=== PATIENT | male | born 1930 | race Caucasian/White ===

== ENCOUNTER → 2016-11-22 13:07 | Outpatient (CLI) | payer MEDICARE, BC ==
[2014-09-18 13:35] VITALS: BMI 24.2
[~2016-11-22 13:07] MED LIST: ABILIFY2 MG PO; ALEVE220 MG PO; BAYER CHEWABLE81 MG PO; BENADRYL50 MG PO; BETAPACE 80 MG80 MG PO; BUMEX 1 MG TAB1 MG PO; CALAMINE LOTIO177 ML TOPICAL; CELEXA20 MG PO; COLACE100 MG PO; DULCOLAX10 MG/SUPP RC; FISH OIL 1,0001 CA1 PO; FLORINEF 0.1 M0.1 MG PO; GEMFIBROZIL600 MG PO; HEMOCYTE PLUS C1 CAP PO; IBUPROFEN200 MG PO; K-DUR20 MEQ PO; LASIX40 MG PO; LOVASTATIN10 MG PO; MELATONIN 10 M1 EACH PO; MELATONIN10 M1 PO; METAMUCIL1042 GM PO; MEVACOR20 MG PO; MIRALAX17 GM PO; OCUVITE TABLET1 TA1 PO; SENOKOT-S TABLE1 TAB PO; ULTRAM50 MG PO; VITAMIN B-121000 MCG PO; XARELTO20 MG PO; ZOFRAN ODT4 MG/UDTAB PO; ZOFRAN4 MG PO
== END | disposition home or self-care (01) ==
LOC: D.LABREF 13:07
DX: N02.9 Recurrent and persistent hematuria with unspecified morphologic changes (principal)

== ENCOUNTER 2016-11-23 06:53 | Day surgery (SDC) | payer MEDICARE, BC ==
[~2016-11-23] VITALS: Ht 182.9 cm; Wt 83.9 kg
[~2016-11-23 06:53] MED LIST changes: -IBUPROFEN200 MG PO; -MELATONIN10 M1 PO
[2016-11-23 07:11] LABS: BASOPHILS 0.7 % (0.0-2.0); EOSINOPHILS 3.3 % (0-7); HEMATOCRIT 40.2 % (42.0-54.0); HEMOGLOBIN 12.8 g/dL (13.5-17.5); IMMATURE GRANULOCYTES 0.2 % (0-5); LYMPHOCYTES 36.8 % (15-50); MCH 30.7 pg (26.0-34.0); MCHC 31.8 g/dL (31.0-37.0); MCV 96.4 fL (80.0-100.0); MEAN PLATELET VOLUME 11.4 fL (7.4-10.4); MONOCYTES 13.9 % (2-11); NEUTROPHILS 45.1 % (40-80); PLATELET COUNT 119 10x3/uL (130-400); RBC 4.17 10x6/uL (4.20-6.10); RDW 14.1 % (11.5-14.5); WBC 4.5 10x3/uL (4.8-10.8)
[2016-11-23 07:20] LABS: CARBON DIOXIDE 29.5 mmol/L (21.0-32.0); CREATININE - SERUM 1.2 mg/dL (0.6-1.3); POTASSIUM - SERUM 4.5 mmol/L (3.5-5.1)
[2016-11-23] MEDS ORDERED: IBUPROFEN200 MG PO (08:18)
[2016-11-23] MEDS ORDERED: MELATONIN10 M1 PO (08:20)
[2016-11-23 08:28] VITALS: BP 145/74; Ht 182.9 cm; Wt 83.9 kg
--- NOTE | 2016-11-23 11:04 | NUR ---
1015 SPOKE WITH PATIENT'S DAUGHTER, JEFF BUTLER SURGICAL DELAY. EXPLAINED DR CAMARENA WAS STILL PERFORMING HIS FIRST PROCEDURE. INFORMED DAUGHTER WE WOULD KEEP THEM UPDATED HOURLY.
--- NOTE | 2016-11-23 12:23 | NUR ---
1220 SPOKE WITH SON TEZ JEFF CONTINUING DELAY DUE TO LENGTH OF PREVIOUS PATIENTS PROCEDURES.
--- NOTE | 2016-11-23 13:14 | NUR ---
1310 NOTIFIED PATIENT (SON - TEZ) THAT TRANSPORTER WOULD BE COMING TO BRING PATIENT TO SURGERY.
--- NOTE | 2016-11-23 18:06 | NUR ---
1545 IV DC WITH CATHER TIP INTACT
--- NOTE | 2016-11-25 13:30 | OP ---
PATIENT NAME: LAKSHMI WILLIAMSON MEDICAL RECORD: [id number] :30 LOCATION:[facility] ADMISSION DATE: SURGEON: MATA CAMARENA MD DATE OF OPERATION: 11/23/2016 SURGEON: Mata Camarena M.D. ANESTHESIA: MAC by Dr. Billy. PREOPERATIVE DIAGNOSIS: Gross hematuria. FINDINGS: Prior radical prostatectomy. Single ureteral orifices. No bladder tumors, but inflamed bladder surface on the trigone and posterior wall. PROCEDURES: Cystoscopy, bladder biopsy. SPECIMENS: Bladder biopsy. COMPLICATIONS: None. ESTIMATED BLOOD LOSS: None. CLINICAL HISTORY: This is an 86-year-old male, who was formerly on Xarelto when he had a pulmonary embolism. He has since stopped being on Xarelto. He has also had a radical prostatectomy several years ago for prostate cancer. He developed episodes of painless gross hematuria. He comes to have this investigated. Earlier today, he had a CT scan of his abdomen and pelvis, which showed a 6-mm gallstone. His kidneys are normal. He has some signs of sigmoid diverticulosis, but not diverticulitis. Now, he comes to have a cystoscopy performed under sedation. This is at the patient's request. We gave him a gram of Ancef IV glue bone crusher to the OR. PROCEDURE IN DETAIL: The patient was given IV sedation. He was then placed in the dorsal lithotomy and prepped and draped. Lidocaine jelly was inserted into the urethra. We used a 21-Greenlandic cystoscope with 30-degree lens. The penile urethra shows no signs of any stricture or tumors. He has had a radical prostatectomy in the past. He is incontinent from the radical prostatectomy. Going into the bladder, we saw single ureteral orifices. No bladder tumors were seen. The bladder was mildly trabeculated. Within the trigonal region, there are large, reddish, patchy spots of the bladder wall including the trigone and the posterior wall. These may be from a recent cystitis. However, to make sure that this is not carcinoma in situ, I used a rigid biopsy forceps and took a large bite of the posterior wall of the bladder. The specimen was sent to pathology in formalin. The biopsy site was cauterized using a Bugbee electrode. The patient was then brought to the recovery room. TRANSINT:[id number] Voice Confirmation ID: [id number] DOCUMENT ID: [id number] OPERATIVE REPORT [id number] LAKSHMI WILLIAMSON, MATA Gr MD at 1330 CC: [id number] DICTATION DATE: 11/23/16 1438 CIVIL PREPAREDNESS TRAINING OFFICER: 11/23/162040 [facility] 11/23/16 [id number] [place] [address]
== END 2016-11-23 16:00 | disposition home or self-care (01) ==
LOC: D.OPS 06:53 → D.CT 08:00 → D.OPS 08:00
PROVIDERS: Urology
DX: R31.0 Gross hematuria (principal); N32.89 Other specified disorders of bladder; K80.20 Calculus of gallbladder without cholecystitis without obstruction; Z85.46 Personal history of malignant neoplasm of prostate

== ENCOUNTER 2017-02-15 07:35 | Outpatient (CLI) | payer MEDICARE, BC ==
[~2017-02-15] VITALS: Ht 182.9 cm; Wt 84.1 kg
--- NOTE | ~2017-02-15 | OP ---
PATIENT NAME: LAKSHMI WILLIAMSON MEDICAL RECORD: [id number] :30 LOCATION:D.CAT ADMISSION DATE: SURGEON: BRANDON VALLADARES M.D. DATE OF OPERATION: 02/15/2017 REFERRING PHYSICIAN: Karen Avila M.D. PROCEDURES PERFORMED: 1. Selective coronary angiography. 2. Left heart catheterization with ventriculogram. 3. Bypass angiography. 4. Left internal mammary injection. 5. Aortic root injection. 6. PTCA and stent placed right coronary artery. INDICATION: An 86-year-old gentleman presents with accelerating angina and pain relieved with nitroglycerin. EQUIPMENT USED: Diagnostic 5-Israeli JL4, AR modified catheter, pigtail catheter, and mammary catheter. INTERVENTION: A 6-Israeli AR1 guide, BMW guide wire, 4.0 x 18 mm Integrity stent, 4.0 x 22 mm Integrity stent. TECHNIQUE: A 5-Israeli sheath was inserted in retrograde fashion in the right common femoral artery. Next, selective coronary angiography was performed in standard views using 5-Israeli JL4 and AR modified catheters. Bypass angiography was performed using the AR modified catheter. The internal mammary was selected with internal mammary catheter. Aortic root injection performed using pigtail catheter. Left heart catheterization performed using pigtail catheter as well. CORONARY ANATOMY: 1. Left main: Left main trunk is moderate in caliber. It gives rise to the LAD and circumflex. There is no obstruction. 2. LAD: This is a moderate caliber vessel extending to apex. There is competitive flow seen in the mid segment. The proximal vessel has a smooth 70% stenosis. 3. Circumflex: This vessel is small in caliber. It supplies a high lateral branch in proximal segment. These vessels have mild irregularities. 4. Right coronary: This vessel is large in caliber and dominant. The proximal vessel demonstrates an 80% stenosis followed by 78% stenosis in mid segment, which appears to be a ruptured plaque. 5. Saphenous vein graft to PDA. This graft appears to be closed at the origin. 6. Left internal mammary artery to LAD: This graft is patent throughout its course. The vessel is somewhat small, but is widely patent to the anastomosis. 7. Left ventricle: Left ventricle is normal in size. No wall motion abnormalities are seen. Estimated ejection fraction is between 45% to 50%. 8. Ascending aorta: Aortic root injection was performed to visualize the ascending aorta. There was difficulty in engaging the catheters. 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 There is mild insufficiency is noted to the aortic valve. There is no evidence of stenosis. DESCRIPTION OF INTERVENTION: A 6-Israeli sheath was inserted in retrograde fashion in the right common femoral artery. Next, 100 units per kilogram of heparin was infused. A 6-Israeli AR1 guide was advanced and engaged in the right OPERATIVE REPORT [id number] LAKSHMI WILLIAMSON coronary artery. Next, a BMW guide wire was placed in the distal vessel. A 4.0 x 20 mm Integrity stent was placed across the mid right coronary artery and deployed at 12 atmospheres. Next, a 4.0 x 18 mm Integrity stent was placed across the proximal lesion, deployed at 12 atmospheres. Injection revealed both stents to be widely patent. There is marked improvement in distal flow. At this point, the wire and guide were removed. IMPRESSION: Successful percutaneous transluminal coronary angioplasty and stent in the right coronary artery with 0% residual stenosis. TRANSINT:[id number] Voice Confirmation ID: [id number] DOCUMENT ID: [id number] BRANDON VALLADARES M.D. CC: [id number] DICTATION DATE: 02/15/17 1138 BODY STYLIST: 02/15/172116 DEP CLI 02/15/17 [facility] [address] [place] [address]
--- NOTE | ~2017-02-15 | HEMODYNAMI ---
PATIENT:LAKSHMI WILLIAMSON MEDICAL RECORD: [id number] : 30 LOCATION:D.CAT ADMISSION DATE: 02/15/17 Generatedon:02/15/201711:32 Patient name: LAKSHMI WILLIAMSON Patient #: [id number] SSN: : 1930 Date of study: 02/15/2017 Page: Of Hemodynamic Procedure Report Patient Data Patient Demographics Procedure consent was obtained First Name: LAKSHMI Gender: Male Last Name: CLAY : 1930 Middle Initial: M Age: 86 year(s) Patient #: [id number] Race: Unknown Additional ID: [id number] Contact details [address]: [address] [place] [address] rd State: [place] City: [place] Zip code: [address] Past Medical History Allergies Allergen Reaction Date Comments Reported Sulfa drugs 02/15/2017 Admission Admission Data Admission Date: 02/15/2017 Admission Time: 7:35 Lab Results Lab Result Date: 02/15/2017 Lab Result Time: 0:00 Biochemistry Name Units Result Min Max Creatinine mg/dl 1.2 --(---*)-- 0.6 1.3 CBC Name Units Result Min Max Hemoglobin g/dl 12.8 -*(----)-- 13.5 17.5 Procedure Procedure Types Cath Procedure Diagnostic Procedure LHC LHC w/Coronaries w/Grafts PCI Procedure Coronary Stent Initial Miscellaneous Procedures Moderate Sedation up to 45 minutes Procedure Description Procedure Date Procedure Date: 02/15/2017 Procedure Start Time: 10:50 Procedure End Time: 11:32 Procedure Staff Name Function Russel Guzmán MD Performing Physician Tiffani Zavala RT Scrub Rik Andrade RN Nurse Alyx Coy RN Nurse Rayne Owens RT Monitor Demetrius Watters RN Contact Center Engineer Procedure Data Cath Procedure Fluoroscopy Diagnostic fluoroscopy Total fluoroscopy Time: time: 12.1 min 12.1 min Diagnostic fluoroscopy Total fluoroscopy dose: dose: 1179 mGy 1179 mGy Contrast Material Contrast Material Type Amount (ml) Isovue 300 188 Entry Location Entry Primary Successful Side Size Upsize Upsize Entry Closure Succes sful Closure Location (Fr) 1 (Fr) 2 (Fr) Remarks Device Remarks Femoral Right 5 Fr 6 Fr Exoseal artery Short Estimated blood loss: 10 ml Diagnostic catheters Device Type Used For End Catheter Placement Cordis 5Fr JL 4.0 Left Coronary Catheter (MP) Angiography Diagnostic Infinity 5Fr Right Coronary AR MOD Catheter Angiography Diagnostic Infinity 5Fr Internal mammary IM catheter arteriography Cordis 5Fr Pigtail LV Angiography Catheter (MP) Cordis 5Fr Pigtail Aortic Root Catheter (MP) Angiography Procedure Complications No complications Procedure Medications Medication Administration Route Dosage Oxygen NC 2 l/min Heparin Flush Bag added to field 2 bags (1000units/500ml NS) Lidocaine 2% added to field 20 0.9% NaCl I.V. 100 ml/hr Fentanyl I.V. 50 mcg Versed I.V. 1 mg Heparin Bolus I.V. 8000 units Nitroglycerin IC/IA I.C. 100 mcg Plavix P.O. 600 mg Hemodynamics Rest HGB: 12.8 (g/dl) Heart Rate: 61 (bpm) Pressure Samples Time Site Value (mmHg) Purpose Heart Use Rate(bpm) 11:03 LV 156/14,34 EDP 60 11:04 AO 152/73(107) Pullback 60 11:04 LV 159/13,36 Pullback 60 Gradients Valve Time Site 1 Site 2 Mean SEP/DFP Peak To Heart Use (mmHg) (sec/min) Peak Rate (mmHg) (bpm) Aortic 11:04 LV AO 8 24 7 60 159/13,36 152/73(107) Calculations Valve P-P Mean Valve Index Valve Source Name Gradient Area Flow (cm2) Aortic 7 8 7 8 Snapshots Pre Cath Intra NCS Post Cath Vital Signs Time Heart Resp SPO2 etCO2 [id number] NIBP (mmHg) Rhythm Pain Sedation Rate (ipm) (%) (mmHg) (mmHg) Status Level (bpm) 10:39:06 62 18 98 0 0 137/79(105) NSR 0 (11) 10(A) , No pain 10:43:20 60 16 98 0 0 145/79(104) NSR 0 (11) 10(A) , No pain 10:47:38 59 13 97 0 0 143/74(123) NSR 0 (11) 9(A) , No pain 10:51:52 60 14 99 0 0 139/78(96) NSR 0 (11) 9(A) , No pain 10:56:08 60 14 99 0 0 135/70(111) NSR 0 (11) 9(A) , No pain 11:00:20 60 13 100 0 0 126/76(107) NSR 0 (11) 9(A) , No pain 11:04:30 60 14 98 0 0 139/74(121) NSR 0 (11) 9(A) , No pain 11:08:44 60 12 98 0 0 138/78(94) NSR 0 (11) 9(A) , No pain 11:12:58 59 13 100 0 0 129/72(86) NSR 0 (11) 9(A) , No pain 11:17:10 60 12 100 0 0 141/72(114) NSR 0 (11) 9(A) , No pain 11:21:24 60 13 100 0 0 131/75(91) NSR 0 (11) 9(A) , No pain 11:25:36 60 12 100 0 0 132/75(88) NSR 0 (11) 9(A) , No pain 11:29:48 60 12 96 0 0 128/74(99) NSR 0 (11) 10(A) , No pain Medications Time Medication Route Dose Verified Delivered Reason Notes Effectiveness by by 10:37:13 Oxygen NC 2 Alyx Alyx used for l/min Zbigniew Zbigniew specialized developer RN 10:37:22 Heparin Flush added 2 Alyx Alyx used for Bag to bags Zbigniew Zbigniew procedure (1000units/500ml field RN RN NS) 10:37:36 Lidocaine 2% added 20ml Alyx Alyx used for to vial Zbigniew Zbigniew procedure field RN RN 10:37:50 0.9% NaCl I.V. 100 Alyx Alyx used for ml/hr Zbigniew Zbigniew specialized developer RN 10:45:11 Fentanyl I.V. 50 Alyx Alyx for sedation mcg Zbigniew Zbigniew RN RN 10:45:19 Versed I.V. 1 mg Alyx Alyx for sedation Zbigniew Zbigniew RN RN 11:07:47 Heparin Bolus I.V. 8000 Russel Alyx Per verified units Chad FRANCO Zbigniew physician with dr. CAMILO guzmán 11:25:16 Nitroglycerin I.C. 100 Russel Russel for IC/IA mcg Chad Guzmán MD vasodilation 11:30:08 Plavix P.O. 600 Alyx Wisdom Per mg Zbigniew Coy physician RN mail carrier and clerk Log Time Note 10:24:49 Diagnostic Cath Status : Elective 10:27:36 Demetrius Watters RN sent for patient. Start room use. 10:27:38 Time tracking: Regular hours 10:27:42 Plan of Care:Hemodynamics will remain stable., Cardiac rhythm will remain stable., Comfort level will be maintained., Respiratory function will remain adequate., Patient/ family verbilizes understanding of procedure., Procedure tolerated without complication., Recovers from procedure without complications.. 10:33:20 Patient received from Pre/Post Procedure Room to CCL 1 Alert and oriented. Tansferred to table in Supine position. 10:33:21 Warm blankets applied, and thomas hugger turned on for patient comfort. 10:33:21 Correct patient and procedure confirmed by team. 10:33:23 Signed procedure consent form obtained from patient. 10:33:24 ECG and BP/O2 sat monitors applied to patient. 10:33:25 Full Disclosure recording started 10:37:13 Oxygen 2 l/min NC was administered by Alyx Coy RN; used for procedure; 10:37:22 Heparin Flush Bag (1000units/500ml NS) 2 bags added to field was administered by Alyx Coy RN; used for procedure; 10:37:36 Lidocaine 2% 20ml vial added to field was administered by Alyx Coy RN; used for procedure; 10:37:50 0.9% NaCl 100 ml/hr I.V. was administered by Alyx Coy RN; used for procedure; 10:37:57 Vital chart was started 10:39:29 Rhythm: sinus rhythm 10:40:05 H&P Date Dictated: 02/09/2017 Within 30 days and on chart., H&P Addendum completed by physician on day of procedure. (MUST COMPLETE FOR ALL OUTPATIENTS). 10:40:06 Pre-procedure instructions explained to patient. 10:40:06 Pre-op teaching completed and patient verbalized understanding. 10:40:07 Family in waiting room. 10:40:10 Patient NPO since Midnight. 10:40:19 Patient allergic to Sulfa drugs 10:40:22 Is the patient allergic to Iodine/contrast media? No. 10:40:27 Is patient on blood thinner?No 10:40:29 Patient diabetic? No. 10:40:32 Previous problem with sedation/anesthesia? No ? 10:40:33 Snore? Yes 10:40:34 Sleep apnea? No 10:40:35 Deviated septum? No 10:40:35 Opens mouth fully? Yes 10:40:36 Sticks out tongue? Yes 10:40:38 Airway obstruction? No ? 10:40:40 Dentures? Yes In 10:40:43 Pre procedure: right dorsailis pedis pulse 2+ Normal; easily identifiable; not easily obliterated 10:40:45 Patient pain scale 0/10 ?. 10:40:52 IV patent on arrival in left hand with 0.9% NaCl at [facility]. 10:41:54 Lab Result : Creatinine 1.2 mg/dl 10:41:54 Lab Result : Hemoglobin 12.8 g/dl 10:41:58 Lab results completed and on chart. 10:42:01 Right groin area was prepped with chlora-prep and draped in sterile fashion 10:42:01 Alarms reviewed by R. N. 10:42:02 Sharps counted by scrub and verified by R.N. 10:42:08 Use device set Femoral Dx 10:42:09 Acist Syringe opened to sterile field. 10:42:09 Bag Decanter opened to sterile field. 10:42:10 Medline Cath Pack opened to sterile field. 10:42:10 Terumo 5Fr [place] Sheath opened to sterile field. 10:42:11 St Joce 260cm J .035 wire opened to sterile field. 10:42:12 Acist Hand Control opened to sterile field. 10:42:12 Acist Manifold opened to sterile field. 10:42:13 Diagnostic Infinity 5Fr Multipack catheter opened to sterile field. 10:42:13 Tegaderm 4 x 4 opened to sterile field. 10:43:25 Final Timeout: patient, procedure, and site verified with staff and physician. All members of the team are in agreement. 10:43:26 Right groin site verified by team. 10:43:29 Physical assessment completed. ASA score P 2 - A patient with mild systemic disease as per Russel Guzmán MD. 10:43:32 Sedation plan: IV Moderate Sedation Versed, Fentanyl 10:43:57 Baseline sample Acquired. 10:45:11 Fentanyl 50 mcg I.V. was administered by Alyx Coy RN; for sedation; 10:45:19 Versed 1 mg I.V. was administered by Alyx Coy RN; for sedation; 10:49:59 Procedure started. 10:50:47 Local anesthetic to right femoral artery with Lidocaine 2% by Russel Guzmán MD.INITIAL ACCESS ONLY 10:51:28 A 5 Fr sheath was inserted into the Right Femoral artery 10:53:15 A Cordis 5Fr JL 4.0 Catheter (MP) was advanced over the wire and used for Left Coronary Angiography. 10:55:20 Catheter removed. 10:56:55 A Diagnostic Infinity 5Fr AR MOD Catheter was advanced over the wire and used for Right Coronary Angiography. 10:59:38 Catheter removed. 10:59:51 A Diagnostic Infinity 5Fr IM catheter was advanced over the wire and used for Internal mammary arteriography.To LAD 11:01:42 Catheter removed. 11:02:28 A Cordis 5Fr Pigtail Catheter (MP) was advanced over the wire and used for LV Angiography. 11:03:36 LV gram done using HUGHES 11:03:38 LV hemodynamics recorded. 11:03:40 Injector settings: Ml/sec: 10, Volume: 20, 11:03:58 EF : 50 % 11:04:50 A Cordis 5Fr Pigtail Catheter (MP) was advanced over the wire and used for Aortic Root Angiography. 11:05:45 Catheter removed. 11:06:07 Medtronic Launcher 6Fr AR 1.0 guide catheter opened to sterile field. 11:06:08 Launchr BasixCompak Inflation Kit opened to sterile field. 11:06:09 Acosta BMW [place] 2 J-tip 300cm 0.014 guide wir opened to sterile field. 11:06:10 High Pressure Extension Tubing (Chad) opened to sterile field. 11:06:27 Terumo 6Fr [place] Sheath opened to sterile field. 11:06:39 Sheath upsized to a 6 Fr Short. 11:07:47 Heparin Bolus 8000 units I.V. was administered by Alyx Coy RN; Per physician; verified with dr. guzmán 11:08:26 6 Fr AR 1.0 guide catheter was inserted over the wire 11:13:05 BMW wire advanced. 11:15:37 Inflation Number: 1 A Medtronic Integrity 4.0 X 22 stent was prepped and advanced across the Mid RCA. The stent was deployed at 12 CYNTHIA for 0:17 (min:sec). 11:16:59 Stent catheter was removed intact over wire. 11:22:24 Inflation Number: 2 A Medtronic Integrity 4.0 X 18 stent was prepped and advanced across the Mid RCA. The stent was deployed at 11 CYNTHIA for 0:19 (min:sec). 11:23:01 Stent catheter was removed intact over wire. 11:25:16 Nitroglycerin IC/IA 100 mcg I.C. was administered by Russel Guzmán MD; for vasodilation; 11:26:23 Wire removed. 11:26:33 Guide catheter removed. 11:26:49 Cordis 6Fr Exoseal opened to sterile field. 11:26:57 Sheath removed intact; hemostasis achieved with Exoseal to the Right Femoral artery. 11:27:03 Procedure ended.(Physican Out) 11:28:24 Fluoroscopy time 12.10 minutes. 11:28:29 Flurop Dose total: 1179 11:28:29 Fluoroscopy dose: 1179 mGy 11:28:34 Contrast amount:Isovue 300 188ml. 11:28:36 Sharps counted by scrub and verified by R.N. 11:28:38 Insertion/operative site no bleeding no hematoma. 11:28:41 Post-op/insertion site Right Femoral artery dressed using a 4 x 4 and Tegaderm. 11:28:45 Post right femoral artery:stable, clean and dry 11:28:52 Post Procedure Pulses reassessed and unchanged 11:28:58 Post-procedure physical assessment completed. ASA score P 2 - A patient with mild systemic disease as per Russel Guzmán MD. 11:29:00 Post procedure rhythm: unchanged. 11:29:03 Estimated blood loss: 10 ml 11:29:05 Post procedure instruction explained to patient.Patient verbalizes understanding. 11:29:05 Patient needs reinforcement of post procedure teaching. 11:29:30 Procedure type changed to Cath procedure, Diagnostic procedure, LHC, LHC w/Coronaries w/Grafts, PCI procedure, Coronary Stent Initial, Miscellaneous Procedures, Moderate Sedation up to 45 minutes 11:29:35 Procedure Complication : No complications 11:29:38 See physician's report for complete and final results. 11:30:08 Plavix 600 mg P.O. was administered by Alyx Coy RN; Per physician; 11:30:49 Procedure and supply charges have been captured, reviewed, submitted and are correct. 11:32:10 Vital chart was stopped 11:32:12 Report given to Pre/Post Procedure Room. 11:32:15 Patient transfered to Pre/Post Procedure Room with Bed. 11:32:23 Procedure ended. 11:32:23 Full Disclosure recording stopped 11:32:26 End room use (Document Last) Intervention Summary Intervention Notes Time ActionType Lesion and Equipment Action# Pressure Duration Attributes Used 11:15:37 Place stent Mid RCA Medtronic 1 12 00:18 Integrity 4.0 X 22 stent 11:22:24 Place stent Mid RCA Medtronic 2 11 00:20 Integrity 4.0 X 18 stent Device Usage Item Name Manufacture Quantity Catalog Hospital Part Current Minimal L ot# / Number Charge Number Stock Stock Serial# Code Acist Acist 1 [id number] 447398 817442 297953 20 Syringe Medical Systems Inc Bag Microtek 1 2002S 412362 08318 691984 5 HighlightCam Medical Inc. Medline Cardinal 1 [id number] 326502 94735 895014 5 Cath Pack Health Terumo 5Fr Terumo 1 [id number] 941397 642878 673209 [address] Joce 1 [id number] 220645 068290 036713 30 260cm J .035 wire Acist Hand Acist 1 55828 660051 372096 404165 5 Control Medical Systems Inc Acist Acist 1 08821 806071 974604 659545 5 Manifold Medical Systems Inc Diagnostic Cardinal 1 [id number] 010129 94146 400473 30 InstantMarketing 5Fr Multipack catheter Tegaderm 4 3M 1 1626W 721973 298617 823408 5 x 4 Cordis 5Fr Cardinal 1 043279 5 JL 4.0 Health Catheter (MP) Diagnostic Cardinal 1 [id number] 507152 312266 982724 15 InstantMarketing 5Fr AR MOD Catheter Diagnostic Cardinal 1 [id number] 653641 906940 950912 5 Infinity Health 5Fr IM catheter Cordis 5Fr Cardinal 1 432860 5 Pigtail Health Catheter (MP) Medtronic Medtronic 1 [id number] 199235 21186 275527 1 Launcher 6Fr AR 1.0 guide catheter Merit Merit 1 [id number] 958129 676489 711457 15 BasixCompak Medical Inflation Kit Acosta BMW Acosta 1 [id number] 829436 079313 483370 5 [place] 2 Vascular J-tip 300cm 0.014 guide wir High Merit 1 [id number] 263547 39221 986976 10 Pressure Medical Extension Tubing (Guzmán) Terumo 6Fr Terumo 1 [id number] 251985 094618 983105 40 [place] Sheath Medtronic Medtronic 1 [id number] 744749 978046 1 0 [id number] Integrity 4.0 X 22 stent Medtronic Medtronic 1 [id number] 375248 479033 1 0 [id number] Integrity 4.0 X 18 stent Cordis 6Fr Cardinal 1 [id number] 267355 353458 502028 10 [facility] TravelZeeky Signature Audit [place] Stage Time Signature Unsigned Intra-Procedure 02/15/2017 Rayne 11:32:36 AM Counts RT(R) Signatures Monitor : Rayne Signature : Counts RT Date : Time : [address] [place] [address]
[~2017-02-15 07:35] MED LIST changes: +IBUPROFEN200 MG PO; +MELATONIN10 M1 PO
[2017-02-15 07:49] VITALS: BP 127/69; Ht 182.9 cm; Wt 84.1 kg
[2017-02-15 08:08] LABS: BASOPHILS 0.7 % (0-2); EOSINOPHILS 3.2 % (0-7); HEMATOCRIT 39.5 % (42.0-54.0); HEMOGLOBIN 12.8 g/dL (13.5-17.5); LYMPHOCYTES 34.5 % (15-50); MCH 31.4 pg (26.0-34.0); MCHC 32.4 g/dL (31.0-37.0); MCV 96.8 fL (80.0-100.0); MEAN PLATELET VOLUME 11.6 fL (7.4-10.4); MONOCYTES 11.3 % (2-11); NEUTROPHILS 50.3 % (40-80); PLATELET COUNT 128 10x3/uL (130-400); RBC 4.08 10x6/uL (4.20-6.10); RDW 14.2 % (11.5-14.5); WBC 4.4 10x3/uL (4.8-10.8)
[2017-02-15 08:36] LABS: CALCIUM 8.8 mg/dL (8.5-10.1); CARBON DIOXIDE 28.2 mmol/L (21.0-32.0); CREATININE - SERUM 1.2 mg/dL (0.6-1.3); POTASSIUM - SERUM 4.2 mmol/L (3.5-5.1)
[2017-02-15] MEDS ORDERED: PLAVIX75 MG PO (11:41)
--- NOTE | 2017-02-15 15:19 | NUR ---
1200 LYING FLAT, NC 2L IN PLACE WHILE RESTING. NSR RATE 62 W NO C/O CHEST PAIN. PULSES PALP X 4. R GROIN 6F EXOSEAL C/D/I WITH NO HEMATOMA OR BLEEDING. SON AND DAUGHTER AT BEDSIDE. 1230 RESTING WITH EYES CLOSED. VITALS ALL WNL. R GROIN 6F EXOSEAL C/D/I WITH NO HEMATOMA OR BLEEDING. 1330 R GROIN REMAINS C/D/I WITH NO BLEEDING OR HEMATOMA. VITALS WNL. 1430 SIPPING SODA WITH NO NAUSEA. ROOM AIR WITH NO DISTRESS. SON AT BEDSIDE. BOTH PATIENT AND SON DENY NEEDS AT THIS TIME 1515 ELEVATED HOB, WILL MONITOR R GROIN CLOSELY FOR BLEEDING. SITTING UP EATING SANDWICH.
--- NOTE | 2017-02-15 15:54 | NUR ---
1350 PIV REMOVED FROM LEFT FOREARM WITH BANDAID APPLIED. UP TO BEDSIDE TO DRESS. AMBULATED TO BATHROOM TO VOID. D/C INSTRUCTIONS DISCUSSED WITH PATIENT AND SON AT BEDSIDE. WHEELED OUT VIA WHEELCHAIR BY CATH TEAM.
== END 2017-02-15 15:56 | disposition home or self-care (01) ==
LOC: D.CATH 07:35
PROVIDERS: Internal Medicine Cardiovascular Disease
DX: I25.110 Atherosclerotic heart disease of native coronary artery with unstable angina pectoris (principal); I25.710 Atherosclerosis of autologous vein coronary artery bypass graft(s) with unstable angina pectoris; I77.819 Aortic ectasia, unspecified site; I35.1 Nonrheumatic aortic (valve) insufficiency; Z01.812 Encounter for preprocedural laboratory examination

== ENCOUNTER → 2017-03-22 19:05 | Outpatient (CLI) | payer MEDICARE, BC ==
[2017-02-15 07:49] VITALS: BMI 25.1
[~2017-03-22 19:05] MED LIST changes: +PLAVIX75 MG PO
[2017-03-22 19:35] LABS: BASOPHILS 1.1 % (0-2); EOSINOPHILS 2.7 % (0-7); HEMATOCRIT 38.8 % (42.0-54.0); HEMOGLOBIN 12.6 g/dL (13.5-17.5); IMMATURE GRANULOCYTES 0.2 % (0-5); LYMPHOCYTES 27.1 % (15-50); MCH 31.6 pg (26.0-34.0); MCHC 32.5 g/dL (31.0-37.0); MCV 97.2 fL (80.0-100.0); MEAN PLATELET VOLUME 11.6 fL (7.4-10.4); MONOCYTES 11.4 % (2-11); NEUTROPHILS 57.5 % (40-80); PLATELET COUNT 137 10x3/uL (130-400); RBC 3.99 10x6/uL (4.20-6.10); RDW 14.4 % (11.5-14.5); WBC 4.7 10x3/uL (4.8-10.8)
[2017-03-22 19:47] LABS: HEMOGLOBIN A1C 5.3 % (4.8-6.0)
[2017-03-22 20:01] LABS: CALC OSMOLALITY 281 mosm/kg (275-300); CALCIUM 8.5 mg/dL (8.5-10.1); CARBON DIOXIDE 28.4 mmol/L (21.0-32.0); CHLORIDE - SERUM 104 mmol/L (98-107); FERRITIN 169 ng/mL (3-244); GLUCOSE 94 mg/dL (74-106); POTASSIUM - SERUM 4.9 mmol/L (3.5-5.1); SODIUM 140 mmol/L (136-145); T4 THYROXINE 7.4 ug/dL (4.7-13.3); THYROID STIMULATING HORMONE 1.84 uIU/mL (0.36-3.74); UREA NITROGEN 20 mg/dL (7-18); eGFR NON AFRICAN AMERICAN 75 mL/min (90-120)
== END | disposition home or self-care (01) ==
LOC: D.LABREF 19:05
PROVIDERS: Internal Medicine Cardiovascular Disease
DX: I10 Essential (primary) hypertension (principal); R53.83 Other fatigue

== ENCOUNTER → 2017-03-30 09:58 | Outpatient (CLI) | payer MEDICARE, BC ==
[2017-02-15 07:49] VITALS: BMI 25.1
== END | disposition home or self-care (01) ==
LOC: D.CT 08:00
DX: R06.02 Shortness of breath (principal); Z86.711 Personal history of pulmonary embolism

== ENCOUNTER → 2017-05-10 13:22 | Outpatient (CLI) | payer MEDICARE, BC ==
[2017-02-15 07:49] VITALS: BMI 25.1
== END | disposition home or self-care (01) ==
LOC: D.CT 13:22
DX: H53.8 Other visual disturbances (principal)

== ENCOUNTER → 2018-05-21 13:34 | Outpatient (CLI) | payer MEDICARE, BC ==
[2017-02-15 07:49] VITALS: BMI 25.1
== END | disposition home or self-care (01) ==
LOC: D.RT 13:34
DX: R06.2 Wheezing (principal)

== ENCOUNTER 2018-07-24 12:03 | Outpatient (CLI) | payer MEDICARE, BC ==
[~2018-07-24] VITALS: Ht 182.9 cm; Wt 85.0 kg
--- NOTE | ~2018-07-24 | HEMODYNAMI ---
PATIENT:LAKSHMI WILLIAMSON MEDICAL RECORD: [id number] : 30 LOCATION:[facility] ADMISSION DATE: 07/24/18 Generatedon:07/24/201815:25 Patient name: LAKSHMI WILLIAMSON Patient #: [id number] SSN: : 1930 Date of study: 07/24/2018 Page: Of Hemodynamic Procedure Report Patient Data Patient Demographics Procedure consent was obtained First Name: LAKSHMI Gender: Male Last Name: CLAY : 1930 Middle Initial: M Age: 88 year(s) Patient #: [id number] Race: Unknown Additional ID: [id number] Contact details Address: [address] [place] [address] rd State: [place] City: [place] Zip code: [address] Past Medical History Allergies Allergen Reaction Date Comments Reported Sulfa drugs 02/15/2017 Sulfa drugs 07/24/2018 Admission Admission Data Admission Date: 07/24/2018 Admission Time: 12:03 Height (in.): 70 BSA: 2.04 (m2) Height (cm.): 177.8 BMI: 27.12 (kg/m2) Weight (lbs.): 189 Weight (kg.): 85.73 Lab Results Lab Result Date: 07/24/2018 Lab Result Time: 0:00 Biochemistry Name Units Result Min Max BUN mg/dl 25 --(----)-* 7 18 Creatinine mg/dl 1 --(--*-)-- 0.6 1.3 CBC Name Units Result Min Max Hemoglobin g/dl 13.7 --(*---)-- 13.5 17.5 Procedure Procedure Types Cath Procedure Diagnostic Procedure LHC LHC w/Coronaries w/Grafts Sedation Charges Moderate Sedation up to 30 minutes Procedure Description Procedure Date Procedure Date: 07/24/2018 Procedure Start Time: 15:00 Procedure End Time: 15:21 Procedure Staff Name Function Russel Bonilla MD Performing Physician Sia Gutierrez RT Monitor Markus Barfield RT Scrub Liat Rueda RN Nurse Demetrius Watters RN Military Equipment Specialist Procedure Data Cath Procedure Fluoroscopy Diagnostic fluoroscopy Total fluoroscopy Time: 4.9 time: 4.9 min min Diagnostic fluoroscopy Total fluoroscopy dose: 556 dose: 556 mGy mGy Contrast Material Contrast Material Type Amount (ml) Isovue 300 85 Entry Location Entry Primary Successful Side Size Upsize Upsize Entry Closure Succes sful Closure Location (Fr) 1 (Fr) 2 (Fr) Remarks Device Remarks Femoral Right 5 Fr Exoseal artery Estimated blood loss: 5 ml Diagnostic catheters Device Type Used For End Catheter Placement MULTIPACK JL 4.0 5Fr Procedure catheter DIAGNOSTIC AR MOD 5Fr Procedure Catheter ([id number]) DIAGNOSTIC IM 5Fr Procedure catheter ([id number]) MULTIPACK Pigtail 5 Fr Procedure catheter Procedure Complications No complications Procedure Medications Medication Administration Route Dosage 0.9% NaCl I.V. 100 ml/hr Oxygen etCO2 Nasal cannula 2 l/min Lidocaine 2% added to field 20 Heparin Flush Bag added to field 2 bags (1000units/500ml NS) Versed I.V. 2 mg Fentanyl I.V. 50 mcg Versed I.V. 2 mg Fentanyl I.V. 50 mcg Hemodynamics Rest BSA: 2.04 (m2) HGB: 13.7 (g/dl) O2 Consumption: Estimated: 225.55 (ml/min) O2 Co nsumption indexed: Estimated:110.56 (ml/min/m) Heart Rate: 63 (bpm) Pressure Samples Time Site Value (mmHg) Purpose Heart Use Rate(bpm) 15:11 LV 122/5,14 Snapshot 60 15:12 AO 129/62(89) Pullback 60 15:12 LV 122/5,16 Pullback 60 Gradients Valve Time Site 1 Site 2 Mean SEP/DFP Peak To Heart Use (mmHg) (sec/min) Peak Rate (mmHg) (bpm) Aortic 15:12 LV AO 0 60 122/5,16 129/62(89) Calculations Valve P-P Mean Valve Index Valve Source Name Gradient Area Flow (cm2) Aortic 0 0 Snapshots Pre Cath Intra NCS Post Cath Vital Signs Time Heart Resp SPO2 etCO2 NIBP Rhythm Pain Sedation Rate (ipm) (%) (mmHg) (mmHg) Status Level (bpm) 14:43:46 65 23 96 34.3 150/84(94) NSR 0 (11) 10(A) , No pain 14:48:04 60 13 98 29.8 134/77(90) NSR 0 (11) 10(A) , No pain 14:52:18 61 13 98 30.5 143/74(91) NSR 0 (11) 10(A) , No pain 14:56:36 60 11 99 26.1 122/75(86) NSR 0 (11) 10(A) , No pain 15:00:48 60 12 96 26 126/71(87) NSR 0 (11) 9(A) , No pain 15:05:04 60 12 96 26.4 119/61(83) NSR 0 (11) 9(A) , No pain 15:09:14 60 19 96 25.9 129/70(94) NSR 0 (11) 9(A) , No pain 15:13:28 59 17 96 17.1 118/72(94) NSR 0 (11) 9(A) , No pain 15:17:40 60 17 96 27.6 120/68(97) NSR 0 (11) 10(A) , No pain 15:21:50 59 11 95 12.6 130/77(97) NSR 0 (11) 10(A) , No pain Medications Time Medication Route Dose Verified Delivered Reason Notes Eff ectiveness by by 14:30:28 0.9% NaCl I.V. 100 Russel Liat used for ml/hr Chad Rueda net manager 14:30:36 Oxygen etCO2 2 Russel Liat used for Nasal l/min Chad Rueda procedure cannula RN 14:30:42 Lidocaine 2% added 20ml Russel Russel for local to vial Chad Bonilla MD anesthetic field 14:30:47 Heparin Flush added 2 Russel Russel used for Bag to bags Chad Bonilla MD procedure (1000units/500ml field NS) 14:46:24 Versed I.V. 2 mg Russel Liat for Chad Rueda sedation RN 14:46:30 Fentanyl I.V. 50 Russel Liat for mcg Chad Rueda sedation RN 14:58:05 Versed I.V. 2 mg Russel Liat for Chad Rueda sedation RN 14:58:09 Fentanyl I.V. 50 Russel Liat for mcg Chad Rueda sedation babbitt spinner Log Time Note 14:20:10 Signed procedure consent form obtained from patient. 14:20:11 Diagnostic Cath status Elective 14:20:12 Time tracking: Regular hours (M-F 7:00 - 5:00) 14:20:16 Plan of Care:Hemodynamics will remain stable., Cardiac rhythm will remain stable., Comfort level will be maintained., Respiratory function will remain adequate., Patient/ family verbilizes understanding of procedure., Procedure tolerated without complication., Recovers from procedure without complications.. 14:21:31 H&P Date Dictated: 07/15/2018 Within 30 days and on chart., H&P Addendum completed by physician on day of procedure. (MUST COMPLETE FOR ALL OUTPATIENTS). 14:21:41 Patient allergic to Sulfa drugs 14:21:49 Patient Height : 70 inches 14:21:52 Patient Weight : 189 lbs 14:22:51 Lab Result : Creatinine 1 mg/dl 14:22:51 Lab Result : BUN 25 mg/dl 14:22:51 Lab Result : Hemoglobin 13.7 g/dl 14:29:34 Markus Barfield RT(R) sent for patient. Start room use. 14:30:28 0.9% NaCl 100 ml/hr I.V. was administered by Liat Rueda RN; used for procedure; 14:30:36 Oxygen 2 l/min etCO2 Nasal cannula was administered by Liat Rueda RN; used for procedure; 14:30:42 Lidocaine 2% 20ml vial added to field was administered by Russel Bonilla MD; for local anesthetic; 14:30:47 Heparin Flush Bag (1000units/500ml NS) 2 bags added to field was administered by Russel Bonilla MD; used for procedure; 14:33:52 Patient received from Pre/Post Procedure Room to CCL 1 Alert and oriented. Tansferred to table in Supine position. 14:33:53 Warm blankets applied, and thomas hugger turned on for patient comfort. 14:33:54 Correct patient and procedure confirmed by team. 14:33:54 ECG and BP/O2 sat monitors applied to patient. 14:42:42 Vital chart was started 14:45:09 Baseline sample Acquired. 14:45:13 Rhythm: sinus rhythm 14:45:14 Full Disclosure recording started 14:45:15 Pre-procedure instructions explained to patient. 14:45:15 Pre-op teaching completed and patient verbalized understanding. 14:45:16 Family in patients room. 14:45:18 Patient NPO since Midnight. 14:45:20 Is patient on blood thinner?No 14:45:21 Patient diabetic? No. 14:45:24 Previous problem with sedation/anesthesia? No ? 14:45:25 Snore? Yes 14:45:26 Sleep apnea? No 14:45:27 Deviated septum? No 14:45:27 Opens mouth fully? Yes 14:45:28 Sticks out tongue? Yes 14:45:30 Airway obstruction? No ? 14:45:33 Dentures? Yes IN TIGHT 14:45:36 Pre procedure: right dorsailis pedis pulse 1+ Palpable, but thready & weak; easily obliterated 14:45:38 Patient pain scale 0/10 ?. 14:45:46 IV patent on arrival in right forearm with 0.9% NaCl at KVO. 14:45:48 Lab results completed and on chart. 14:45:51 Right groin area was prepped with chlora-prep and draped in sterile fashion 14:45:52 Alarms reviewed by R. N. 14:45:52 Sharps counted by scrub and verified by R.N. 14:45:53 Sharps counted by scrub and verified by R.N. 14:45:54 --------ALL STOP TIME OUT------ 14:45:55 Final Timeout: patient, procedure, and site verified with staff and physician. All members of the team are in agreement. 14:45:56 Right groin site verified by team. 14:46:02 Sedation plan: IV Moderate Sedation Medication:Versed, Fentanyl 14:46:04 Physical assessment completed. ASA score P 2 - A patient with mild systemic disease as per Russel Bonilla MD. 14:46:24 Versed 2 mg I.V. was administered by Liat Rueda RN; for sedation; 14:46:30 Fentanyl 50 mcg I.V. was administered by Liat Rueda RN; for sedation; 14:46:56 Use device set Femoral Dx 14:46:57 ACIST Syringe (58278) opened to sterile field. 14:46:58 Bag Decanter (2002) opened to sterile field. 14:46:59 ACIST Hand Control (38968) opened to sterile field. 14:46:59 ACIST Manifold (28520) opened to sterile field. 14:47:00 Tegaderm 4 x 4 (1626W) opened to sterile field. 14:50:27 Medline Cath Pack ([id number]) opened to sterile field. 14:50:28 DIAGNOSTIC WIRE .035 260cm J wire (273053) opened to sterile field. 14:50:30 SHEATH 5FR [place] (HIT759) opened to sterile field. 14:58:05 Versed 2 mg I.V. was administered by Liat Rueda RN; for sedation; 14:58:09 Fentanyl 50 mcg I.V. was administered by Liat Rueda RN; for sedation; 14:59:35 Procedure started. 14:59:36 Zero performed for pressure channel P1 15:00:18 Local anesthetic to right femoral artery with Lidocaine 2% by Russel Bonilla MD.INITIAL ACCESS ONLY 15:00:26 A 5 Fr sheath was inserted into the Right Femoral artery 15:01:05 A MULTIPACK JL 4.0 5Fr catheter was advanced over the wire and used for Procedure. 15:03:04 LCA angiography performed. 15:03:13 Catheter exchanged over wire. 15:03:52 A DIAGNOSTIC AR MOD 5Fr Catheter ([id number]) was advanced over the wire and used for Procedure. 15:05:32 SVG to RCA occluded. 15:05:35 RCA angiography performed. 15:06:39 Catheter exchanged over wire. 15:08:10 A DIAGNOSTIC IM 5Fr catheter ([id number]) was advanced over the wire and used for Procedure. 15:09:27 AMBRIZ to LAD angiography performed. 15:09:37 Catheter exchanged over wire. 15:10:21 DIAGNOSTIC Multipack 5Fr catheter set ([id number]) opened to sterile field. 15:10:26 A MULTIPACK Pigtail 5 Fr catheter was advanced over the wire and used for Procedure. 15:10:58 LV gram done using HUGHES 15:11:01 Injector settings: Ml/sec: 10, Volume: 20, 15:12:07 LV hemodynamics recorded. 15:12:25 EF : 55 % 15:12:29 Catheter exchanged over wire. 15:17:28 EXOSEAL 5Fr (EX500) opened to sterile field. 15:19:31 Sheath removed intact; hemostasis achieved with Exoseal to the Right Femoral artery. 15:20:00 Procedure ended.(Physican Out) 15:20:36 Fluoroscopy time 04.90 minutes. 15:20:40 Flurop Dose total: 556 15:20:40 Fluoroscopy dose: 556 mGy 15:20:44 Contrast amount:Isovue 300 85ml. 15:20:48 Post-op/insertion site Right Femoral artery dressed using a 4 x 4 and Tegaderm. 15:20:51 Post-procedure physical assessment completed. ASA score P 2 - A patient with mild systemic disease as per Russel Bonilla MD. 15:20:55 Post procedure rhythm: sinus bradycardia 15:20:57 Estimated blood loss: 5 ml 15:20:58 Post procedure instruction explained to patient.Patient verbalizes understanding. 15:21:01 Patient needs reinforcement of post procedure teaching. 15:21:21 Procedure type changed to Cath procedure, Diagnostic procedure, LHC, LHC w/Coronaries w/Grafts, Sedation Charges, Moderate Sedation up to 30 minutes 15:21:37 Procedure and supply charges have been captured, reviewed, submitted and are correct. 15:21:39 Procedure Complication : No complications 15:21:40 Vital chart was stopped 15:21:41 See physician's report for complete and final results. 15:21:42 Report given to Pre/Post Procedure Room. 15:21:44 Patient transfered to Pre/Post Procedure Room with Bed. 15:21:46 Procedure ended. 15:21:46 Full Disclosure recording stopped 15:21:48 End room use (Document Last) Device Usage Item Name Manufacture Quantity Catalog Hospital Part Current Minimal L ot# / Number Charge Number Stock Stock Serial# Code ACIST Acist 1 34522 767434 178674 644690 20 Syringe Medical (09778) Systems Inc Bag Microtek 1 2001S 855138 04693 326773 5 Decanter Medical Inc. () ACIST Hand Acist 1 72309 077912 526973 049681 5 Control Medical (60134) Systems Inc ACIST Acist 1 13402 259251 039119 120929 5 Manifold Medical (90502) Systems Inc Tegaderm 4 3M 1 1626W 004307 010014 470242 5 x 4 (1626W) Medline Medline 1 [id number] 573205 73434 953102 5 Cath Pack ([id number]) DIAGNOSTIC St Joce 1 492504 840289 897901 773723 30 WIRE .035 260cm J wire (744954) SHEATH 5FR Terumo 1 KSU011 937139 989261 418129 40 [place] (FBT205) MULTIPACK Cardinal 1 094968 5 JL 4.0 5Fr Health catheter DIAGNOSTIC Cardinal 1 [id number] 149629 288782 591896 15 AR MOD 5Fr Health Catheter (403990P) DIAGNOSTIC Cardinal 1 [id number] 837963 633628 097835 5 IM 5Fr Health catheter (578408N) DIAGNOSTIC Cardinal 1 QT5023 632964 94257 111702 30 Multipack MXP4 5Fr catheter set (YQ1636) MULTIPACK Cardinal 1 749779 5 Pigtail 5 Health Fr catheter EXOSEAL 5Fr Cardinal 1 EX500 634874 883502 600638 10 (EX500) Health Signature Audit Monette Stage Time Signature Unsigned Intra-Procedure 07/24/2018 Sia Gutierrez 3:25:09 PM RT(R) Signatures Monitor : Sia Gutierrez Signature : RT Date : Time : [address] [address]
[2018-07-24] MEDS ORDERED: MELATONIN10 M1 PO (12:33)
[2018-07-24] MEDS ORDERED: MULTI-DAY VITAM1 TAB PO (12:33)
[2018-07-24 12:52] VITALS: BP 147/81; Ht 182.9 cm; Wt 85.0 kg
[2018-07-24 13:02] LABS: BASOPHILS 0.3 % (0-2); EOSINOPHILS 2.8 % (0-7); HEMATOCRIT 41.5 % (42.0-54.0); HEMOGLOBIN 13.7 g/dL (13.5-17.5); IMMATURE GRANULOCYTES 0.3 % (0-5); LYMPHOCYTES 30.9 % (15-50); MCH 31.4 pg (26.0-34.0); MEAN PLATELET VOLUME 11.1 fL (7.4-10.4); MONOCYTES 10.5 % (2-11); NEUTROPHILS 55.2 % (40-80); PLATELET COUNT 154 10x3/uL (130-400); RBC 4.37 10x6/uL (4.20-6.10)
[2018-07-24 13:21] LABS: CALC OSMOLALITY 269 mosm/kg (275-300); CALCIUM 9.3 mg/dL (8.5-10.1); CARBON DIOXIDE 31.3 mmol/L (21.0-32.0); CHLORIDE - SERUM 99 mmol/L (98-107); GLUCOSE 97 mg/dL (74-106); POTASSIUM - SERUM 4.9 mmol/L (3.5-5.1); SODIUM 133 mmol/L (136-145); UREA NITROGEN 25 mg/dL (7-18); eGFR NON AFRICAN AMERICAN 75 mL/min (90-120)
[2018-07-24] MEDS ORDERED: ISOSORBIDE MONO30 M1 PO (15:37)
== END 2018-07-24 17:50 ==
LOC: D.CATH 12:03
PROVIDERS: Internal Medicine Cardiovascular Disease
DX: I25.119 Atherosclerotic heart disease of native coronary artery with unspecified angina pectoris (principal); I25.719 Atherosclerosis of autologous vein coronary artery bypass graft(s) with unspecified angina pectoris; Z01.812 Encounter for preprocedural laboratory examination

== ENCOUNTER → 2018-08-26 17:17 | Outpatient (CLI) | payer MEDICARE, BC ==
[2018-07-24 12:52] VITALS: BMI 25.4
[~2018-08-26 17:17] MED LIST changes: +ISOSORBIDE MONO30 M1 PO; +MULTI-DAY VITAM1 TAB PO
[2018-08-26 18:37] LABS: ANION GAP 12.9 mmol/L (8-16); CALCIUM 8.8 mg/dL (8.5-10.1); CREATININE - SERUM 1.2 mg/dL (0.6-1.3); MAGNESIUM - SERUM 2.1 mg/dL (1.8-2.4); POTASSIUM - SERUM 4.9 mmol/L (3.5-5.1)
== END | disposition home or self-care (01) ==
LOC: D.LABREF 17:17
PROVIDERS: Internal Medicine Cardiovascular Disease
DX: R25.2 Cramp and spasm (principal); I10 Essential (primary) hypertension

== ENCOUNTER → 2020-01-14 08:59 | Outpatient (CLI) | payer MEDICARE, BC ==
[2018-07-24 12:52] VITALS: BMI 25.4
== END | disposition home or self-care (01) ==
LOC: D.NM 08:59
PROVIDERS: ATTEND Nurse Practitioner Gerontology
DX: R10.9 Unspecified abdominal pain (principal)

== ENCOUNTER → 2020-03-10 11:10 | Outpatient (CLI) | payer MEDICARE, BC ==
[2018-07-24 12:52] VITALS: BMI 25.4
== END | disposition home or self-care (01) ==
LOC: D.HCCECHO 01-05 14:00
PROVIDERS: ATTEND Internal Medicine Cardiovascular Disease
DX: I25.10 Atherosclerotic heart disease of native coronary artery without angina pectoris (principal); I10 Essential (primary) hypertension